=== PATIENT | female | born 1950 | race African-American/Black ===

== ENCOUNTER 2018-06-14 11:40 | Outpatient (CLI) | payer MEDICARE | END 2018-06-14 11:41 | disposition home or self-care (01) | LOC: LAB 11:40 | PROVIDERS: ATTEND Family Medicine | DX: Z13.21 Encounter for screening for nutritional disorder (principal); M85.80 Other specified disorders of bone density and structure, unspecified site | CPT/HCPCS: 36415; 82306 ==

== ENCOUNTER 2018-06-28 11:08 | Outpatient (CLI) | payer MEDICARE ==
--- NOTE | 2018-06-28 14:30 | Mammography Report ---
BONE DEXA:06/28/18 11:08:00 CLINICAL: Postmenopausal. COMPARISON: 02/27/14 TECHNIQUE: Two site bone DEXA performed on an Hologic scanner. FINDINGS: The average BMD of the lumbar spine L1-L4 is 0.810g/cm squared with a T-score of -2.2 and a Z-score of -0.2. This compares to 0.807g/cm squared on the last exam and represents a +0.4% change from the previous baseline. The average BMD of the left hip is 0.680g/cm squared with a T-score of -2.1 and a Z-score of -0.8. This compares to 0.662g/cm squared on the last exam and represents a +2.7% change from the previous baseline. The left femoral neck BMD is 0.544g/cm squared the T score of -2.7 and a Z score of -1.1 IMPRESSION: 1. WHO classification: Osteopenia with increased fracture risk based on spine measurements. No significant change compared to the previous exam. 2. WHO classification: Osteoporosis with high fracture risk based on left femoral neck measurements. A modest improvement in left hip BMD compared to the previous exam. RECOMMENDATION: Clinical correlation and routine screening. DEFINITIONS: BMD = Bone Mineral Density T-score = BMD related to mean peak bone mass of young adult (mean expressed in Standard Deviation) Z-score = Age matched BMD expressed in SD World Health Organization (WHO) Diagnostic Criteria Normal T-score > -1 SD Osteopenia T-score between -1 and -2.4 SD Osteoporosis T-score -2.5 SD or below NOTE: BMD is not the only risk factor for fracture; also consider factors such as the patient's age, risk of falling, previous osteoporotic fracture, family history of osteoporotic fractures, current smoker, and low body weight. Z-scores are not calculated if >80 years of age.
--- NOTE | 2018-07-01 09:26 | Mammography Report ---
BILATERAL DIGITAL SCREENING MAMMOGRAM with CAD: 06/28/18 11:08:00 CLINICAL: Routine screening. COMPARISON:02/27/14 FINDINGS: The breasts are mostly fatty with some bilateral residual retroareolar heterogeneously dense fibroglandular densities. No mass, architectural distortion or suspicious calcifications. IMPRESSION: No mammographic evidence of malignancy. BI-RADS CATEGORY: 1 - - Negative RECOMMENDATION: Routine mammographic screening in one year. COMMENT: Patient follow-up letters are generated by our [employer] application.
== END 2018-06-28 11:09 | disposition home or self-care (01) ==
LOC: SPVWC 11:08
PROVIDERS: ATTEND Family Medicine
DX: Z12.31 Encounter for screening mammogram for malignant neoplasm of breast (principal); Z13.820 Encounter for screening for osteoporosis; M81.0 Age-related osteoporosis without current pathological fracture; M85.88 Other specified disorders of bone density and structure, other site; Z78.0 Asymptomatic menopausal state
CPT/HCPCS: 77067; 77080

== ENCOUNTER 2019-06-06 11:37 | Outpatient (CLI) | payer MEDICARE ==
[2019-06-06 11:56] LABS: Basophils # (Auto) 0.1 K/mm3 (0.0-0.1); Basophils % (Auto) 0.9 % (0.0-1.8); Eosinophils # (Auto) 0.1 K/mm3 (0.0-0.4); Eosinophils % (Auto) 1.5 % (0.0-4.3); Hematocrit 37.3 % (30.3-42.9); Hemoglobin 12.5 gm/dl (10.1-14.3); Lymphocytes # (Auto) 2.2 K/mm3 (1.2-5.4); Lymphocytes % (Auto) 35.2 % (13.4-35.0); Mean Corpuscular HGB Conc 34 % (30-34); Mean Corpuscular Volume 86 fl (79-97); Monocytes # (Auto) 0.4 K/mm3 (0.0-0.8); Platelet Count 268 K/mm3 (140-440); Red Blood Count 4.35 M/mm3 (3.65-5.03); Red Cell Distribution Width 13.9 % (13.2-15.2)
[2019-06-06 12:49] LABS: Alanine Aminotransferase 11 units/L (7-56); Albumin 4.3 g/dL (3.9-5); BUN/Creatinine Ratio 24; Blood Urea Nitrogen 12 mg/dL (7-17); Calcium 9.2 mg/dL (8.4-10.2); HDL Cholesterol 74 mg/dL (40-59); Hemolysis Index 3; LDL Cholesterol,Direct 123 mg/dL (50-130)
[2019-06-10 10:52] LABS: Vitamin D, 25-OH, D2 <4 ng/mL
== END 2019-06-06 11:38 | disposition home or self-care (01) ==
LOC: LAB 11:37
PROVIDERS: ATTEND Family Medicine
DX: Z13.1 Encounter for screening for diabetes mellitus (principal); Z11.59 Encounter for screening for other viral diseases; I10 Essential (primary) hypertension; J45.909 Unspecified asthma, uncomplicated; Z86.39 Personal history of other endocrine, nutritional and metabolic disease
CPT/HCPCS: 36415; 80053; 80061; 82306; 83036; 84443; 85025; 86803